=== PATIENT | female | born 1940 | race Caucasian/White ===

== ENCOUNTER 2022-10-21 17:39 | Emergency (ER) | payer MEDICARE, OTHER ==
[~2022-10-21] VITALS: Ht 172.7 cm; Wt 68.0 kg
[~2022-10-21 17:39] MED LIST: ACIDOPHILUS1 EAC3 PO; BUSP10 PO; ESCI5 PO; LOSA50 PO; MAGNESIUM MALATE PO; MELATONIN5 M1 PO; PAXLOVID 150-11 EACH PO; PRESERVISION A1 EAC2 PO; SENNA LAXATIVE8.6 MG PO; VITAMIN B122500 MC1
[2022-10-21 17:43] VITALS: BP 154/69
[2022-10-21 18:07] LABS: Source, Urine Clean Catch
[2022-10-21 18:11] LABS: Appearance, Urine Clear (Clear); Bilirubin, Urine Neg (Neg); Blood, Urine 2+ (Neg); Color, Urine Yellow (P-Yellow); Glucose Qualitative, Urine Neg (Neg); Ketones, Urine Neg (Neg); Leukocyte Esterase, Urine 2+ (Neg); Nitrite, Urine Neg (Neg); Protein, Urine Neg (Neg); Urobilinogen, Urine NORM (Normal)
[2022-10-21 18:22] LABS: Bacteria Few /hpf; Squamous Epithelial Cells Few /hpf (Few)
[2022-10-21 18:44] LABS: BASOPHILS ABSOLUTE AUTO 0.06 K/mm3 (0.00-0.23); BASOPHILS PERCENT AUTO 1 % (0-2); EOSINOPHILS ABSOLUTE AUTO 0.22 K/mm3 (0.00-0.68); EOSINOPHILS PERCENT AUTO 4 % (0-6); Hematocrit 33.4 % (33.0-51.0); Hemoglobin 10.8 g/dL (11.5-16.0); IMMATURE GRAN ABSOLUTE AUTO 0.01 K/mm3 (0.00-0.10); IMMATURE GRAN PERCENT AUTO 0 % (0-1); LYMPHOCYTES ABSOLUTE AUTO 1.26 K/mm3 (0.84-5.20); LYMPHOCYTES PERCENT AUTO 23 % (21-46); MONOCYTES ABSOLUTE AUTO 0.68 K/mm3 (0.16-1.47); MONOCYTES PERCENT AUTO 13 % (4-13); Mean Corpuscular HGB 28.1 pg (26.0-34.0); Mean Corpuscular HGB Conc 32.3 g/dL (31.5-36.5); Mean Corpuscular Volume 87 fL (80-100); Mean Platelet Volume 9.9 fL (9.1-12.4); NEUTROPHILS ABSOLUTE AUTO 3.15 K/mm3 (1.96-9.15); NEUTROPHILS PERCENT AUTO 59 % (41-73); Platelet Count 200 K/mm3 (150-400); RDW Coefficient Variation 13.4 % (11.7-14.2); RDW Standard Deviation 42.5 fL (35.1-46.3); Red Blood Cell Count 3.85 M/mm3 (3.80-5.20); White Blood Cell Count 5.38 K/mm3 (4.00-11.30)
[2022-10-21 19:02] LABS: Albumin, Blood 3.6 g/dL (3.4-5.0); Albumin/Globulin Ratio 0.9 (0.8-1.8); Bilirubin, Total 0.3 mg/dL (0.1-1.0); Bun/Creatinine Ratio 30.1 (12.0-20.0); Calcium, Blood 8.7 mg/dL (8.5-10.1); Creatinine, Blood 0.96 mg/dL (0.40-1.00); Globulin, Blood 3.9 g/dL (2.2-4.0); Potassium, Blood 4.2 mmol/L (3.5-5.5); Total Protein, Blood 7.5 g/dL (6.4-8.2)
[2022-10-21] MEDS ORDERED: CEPH500 PO (20:57)
== END 2022-10-21 21:10 | disposition home or self-care (01) ==
LOC: ER 17:39
PROVIDERS: Emergency Medicine; Student in an Organized Health Care Education/Training Program
DX: N39.0 Urinary tract infection, site not specified (principal); R45.1 Restlessness and agitation
CPT/HCPCS: 36415; 80053; 81001; 85025; 87086; 96374; 99283-25; J0696

== ENCOUNTER 2023-01-23 19:51 | Observation (INO) | payer MEDICARE, OTHER ==
[~2023-01-23] VITALS: Ht 170.2 cm; Wt 69.0 kg
[~2023-01-23 19:51] MED LIST changes: +CEPH500 PO
[2023-01-23 20:37] LABS: BASOPHILS ABSOLUTE AUTO 0.05 K/mm3 (0.00-0.23); BASOPHILS PERCENT AUTO 1 % (0-2); EOSINOPHILS ABSOLUTE AUTO 0.17 K/mm3 (0.00-0.68); EOSINOPHILS PERCENT AUTO 4 % (0-6); Hemoglobin 10.8 g/dL (11.5-16.0); IMMATURE GRAN ABSOLUTE AUTO 0.01 K/mm3 (0.00-0.10); IMMATURE GRAN PERCENT AUTO 0 % (0-1); LYMPHOCYTES ABSOLUTE AUTO 1.28 K/mm3 (0.84-5.20); LYMPHOCYTES PERCENT AUTO 27 % (21-46); MONOCYTES PERCENT AUTO 10 % (4-13); Mean Corpuscular HGB 29.1 pg (26.0-34.0); Mean Corpuscular HGB Conc 32.7 g/dL (31.5-36.5); Mean Corpuscular Volume 89 fL (80-100); Mean Platelet Volume 10.3 fL (9.1-12.4); NEUTROPHILS PERCENT AUTO 58 % (41-73); Platelet Count 178 K/mm3 (150-400); RDW Coefficient Variation 12.9 % (11.7-14.2); RDW Standard Deviation 41.8 fL (35.1-46.3); Red Blood Cell Count 3.71 M/mm3 (3.80-5.20); White Blood Cell Count 4.81 K/mm3 (4.00-11.30)
[2023-01-23 20:58] LABS: Albumin, Blood 3.4 g/dL (3.4-5.0); Albumin/Globulin Ratio 0.9 (0.8-1.8); Bilirubin, Total 0.3 mg/dL (0.1-1.0); Bun/Creatinine Ratio 28.4 (12.0-20.0); Calcium, Blood 8.8 mg/dL (8.5-10.1); Creatinine, Blood 0.84 mg/dL (0.40-1.00); Globulin, Blood 3.9 g/dL (2.2-4.0); Potassium, Blood 4.3 mmol/L (3.5-5.5); Total Protein, Blood 7.3 g/dL (6.4-8.2)
[2023-01-23] MEDS ORDERED: LOSA50 PO (21:17)
[2023-01-23] MEDS ORDERED: REMERON1510 PO (21:17)
[2023-01-23] MEDS ORDERED: MIRALAX17 GM PO (21:18)
[2023-01-23 23:47] LABS: International Normalized Ratio 0.94; Prothrombin Time Results 9.9 Sec (9.7-11.5)
[2023-01-24 04:04] VITALS: BP 166/85
[2023-01-24 05:15] LABS: Hematocrit 34.2 % (33.0-51.0); Hemoglobin 11.3 g/dL (11.5-16.0)
--- NOTE | 2023-01-24 05:24 | NUR ---
SHIFT SUMMARY. PT ARRIVED ON UNIT JUST BEFORE 0400. AOX3-4 ALTHOUGH HX OF DEMENTIA SO PT IS SOMEWHAT FORGETFUL AND IS SOMEWHAT OF A POOR HISTORIAN. EASILY REORIENTED. NO PAIN REPORTED OUTSIDE OF VERY MILD LOWER ABDOMINAL PAIN. SBA. CLEAR LIQUID DIET OF RIGHT NOW. HAS NOT USED CALL LIGHT BUT WAS EDUCATED ON ITS USE. EXCEEDINGLY PLEASANT AND COOPERATIVE WITH CARE. NO STOOL PASSED THUS FAR THIS SHIFT. BED LOCKED IN LOWEST POSITION. CALL LIGHT LEFT WITHIN REACH.
[2023-01-24 06:00] LABS: Albumin, Blood 3.4 g/dL (3.4-5.0); Albumin/Globulin Ratio 0.9 (0.8-1.8); Bilirubin, Total 0.3 mg/dL (0.1-1.0); Bun/Creatinine Ratio 22.6 (12.0-20.0); Calcium, Blood 9.1 mg/dL (8.5-10.1); Creatinine, Blood 0.8 mg/dL (0.40-1.00); Globulin, Blood 3.9 g/dL (2.2-4.0); Potassium, Blood 4.1 mmol/L (3.5-5.5); Total Protein, Blood 7.3 g/dL (6.4-8.2)
[2023-01-24 07:24] VITALS: BP 145/73
[2023-01-24 09:25] LABS: Hematocrit 33.2 % (33.0-51.0); Hemoglobin 10.8 g/dL (11.5-16.0)
[2023-01-24 15:01] VITALS: BP 132/69
--- NOTE | 2023-01-24 16:44 | NUR ---
SHIFT SUMMARY PT AOX3-4, CONFUSED AT TIMES BUT ABLE TO REORIENT. PT ANXIOUS AND WORRIED THIS SHIFT, CONFUSED TO WHY SHE IS HERE. SHE HAS A COLONOSCOPY SCHEDULED FOR TOMORROW. TWO OF HER DAUGHTERS HAVE BEEN AT THE BS. BED ALARM ON, PT CAN BE IMPULSIVE. SBA TO THE BR AT THIS TIME. FAMILY WOULD LIKE TO BE CALLED ONCE A TIME IS SET FOR THE COLONOSCOPY. FIRE PROTOCOLS AND PROCEDURES REVIEWED WITH THE PT, PT VERBALIZED UNDERSTANDING. PT IS ON RA. CALL LIGHT WITHIN REACH, BED IN THE LOWEST POSITION. WILL REPORT TO ONCOMING NURSE.
[2023-01-24 19:29] VITALS: BP 122/77
[2023-01-25] VITALS (30 sets, daily range): BP systolic 129–181; BP diastolic 68–102
--- NOTE | 2023-01-25 05:32 | NUR ---
SUMMARY- NO ACUTE EVENTS OVERNIGHT. PT AAOX1-2 THIS SHIFT ONLY ORIENTED TO SELF AT THE BEGINNING OF THE SHIFT. PT IS EASILY REDIRECTABLE. SBA TO BATHROOM. RN ENSURED FIRE SAFETY EVERY HOUR WITH ROUNDS.
--- NOTE | 2023-01-25 17:34 | NUR ---
01/25/23 1734 Theresa Orozco History, Chart, Medications and Allergies reviewed before start of procedure. 3-LEAD EKG REVIEWED WITH PHYSICIAN PRIOR TO START OF PROCEDURE. MONITOR INTACT WITH CONTINUOUS PULSE OXIMETRY, CONTINUOUS END TITAL CO2, AND INTERMITTENT BLOOD PRESSURE. O2 VIA N/C INTACT THROUGHOUT SEDATION/PROCEDURE. PATIENT DETERMINED TO BE ASA APPROPRIATE FOR PROPOFOL SEDATION PRIOR TO START OF PROCEDURE BY .
--- NOTE | 2023-01-25 18:15 | NUR ---
SHIFT SUMMARY: Pt awake and alert to self and place prior to leaving for colonoscopy. Reminded to call for ast to bathroom. Generalized weakness noted, steady gait. Pt NPO at noon. VSS, resp even nonlabored on RA. Will await report post colonoscopy. Per Dr. Herrera, plan is to repeat labs in am.
--- NOTE | 2023-01-25 19:15 | NUR ---
Received pt back from colonoscopy at 1900 awake and alert. Family at bedside. Denies pain.
[2023-01-26 01:49] VITALS: BP 149/81
[2023-01-26 05:01] LABS: BASOPHILS ABSOLUTE AUTO 0.05 K/mm3 (0.00-0.23); BASOPHILS PERCENT AUTO 1 % (0-2); EOSINOPHILS ABSOLUTE AUTO 0.15 K/mm3 (0.00-0.68); EOSINOPHILS PERCENT AUTO 3 % (0-6); Hematocrit 34.7 % (33.0-51.0); Hemoglobin 11.3 g/dL (11.5-16.0); IMMATURE GRAN ABSOLUTE AUTO 0.01 K/mm3 (0.00-0.10); IMMATURE GRAN PERCENT AUTO 0 % (0-1); LYMPHOCYTES ABSOLUTE AUTO 1.19 K/mm3 (0.84-5.20); LYMPHOCYTES PERCENT AUTO 25 % (21-46); MONOCYTES ABSOLUTE AUTO 0.42 K/mm3 (0.16-1.47); MONOCYTES PERCENT AUTO 9 % (4-13); Mean Corpuscular HGB 28.7 pg (26.0-34.0); Mean Corpuscular HGB Conc 32.6 g/dL (31.5-36.5); Mean Corpuscular Volume 88 fL (80-100); NEUTROPHILS ABSOLUTE AUTO 2.91 K/mm3 (1.96-9.15); NEUTROPHILS PERCENT AUTO 61 % (41-73); Platelet Count 164 K/mm3 (150-400); RDW Coefficient Variation 12.6 % (11.7-14.2); RDW Standard Deviation 40.7 fL (35.1-46.3); Red Blood Cell Count 3.94 M/mm3 (3.80-5.20); White Blood Cell Count 4.73 K/mm3 (4.00-11.30)
--- NOTE | 2023-01-26 05:08 | NUR ---
SUMMARY- PT AAOX1 THIS SHIFT. RN REORIENTED PT ALL THROUGHOUT THE NIGHT. PT IS PLEASANTLY CONFUSED. PT DENIED ANY PAIN THIS SHIFT. TOLERATING CARDIAC DIET WELL. NO BLOODY STOOLS THIS SHIFT. RN ENSURED FIRE SAFETY EVERY HOUR WITH ROUNDS.
[2023-01-26 08:14] VITALS: BP 149/87
--- NOTE | 2023-01-26 13:57 | NUR ---
SHIFT/DISCHARGE SUMMARY Pt remains alert to self and place, pleasantly confused. VSS. Tylenol effective for headache. Up to bathroom with SBA. Voiding without difficulty. BM this afternoon. All discharge instructions reviewed with daughter Gisele with return verbal understanding. Pt to lobby via transport chair and WARP [employer]ESSER.
== END 2023-01-26 14:03 | disposition home or self-care (01) ==
LOC: ER 19:51 → MEDS 19:52 → ENPENDDIS 01-26 11:01 → MEDS 01-26 14:03
PROVIDERS: Internal Medicine; Internal Medicine Gastroenterology; Physician Assistant; Student in an Organized Health Care Education/Training Program; ADMIT Internal Medicine
PROC: 0DBN8ZX Excision of Sigmoid Colon, Via Natural or Artificial Opening Endoscopic, Diagnostic (ICD-10-PCS; principal; 2023-01-25 15:30)
PROC: 0DBK8ZX Excision of Ascending Colon, Via Natural or Artificial Opening Endoscopic, Diagnostic (ICD-10-PCS; principal; 2023-01-25 15:30)
PROC: 0DBL8ZX Excision of Transverse Colon, Via Natural or Artificial Opening Endoscopic, Diagnostic (ICD-10-PCS; principal; 2023-01-25 15:30)
DX: K64.8 Other hemorrhoids (principal); K64.4 Residual hemorrhoidal skin tags; D12.2 Benign neoplasm of ascending colon; D12.3 Benign neoplasm of transverse colon; D12.5 Benign neoplasm of sigmoid colon; F03.A0 Unspecified dementia, mild, without behavioral disturbance, psychotic disturbance, mood disturbance, and anxiety; N17.9 Acute kidney failure, unspecified; I12.9 Hypertensive chronic kidney disease with stage 1 through stage 4 chronic kidney disease, or unspecified chronic kidney disease; N18.9 Chronic kidney disease, unspecified; D63.8 Anemia in other chronic diseases classified elsewhere; K59.09 Other constipation; K57.30 Diverticulosis of large intestine without perforation or abscess without bleeding; K63.5 Polyp of colon; K63.89 Other specified diseases of intestine; Z86.16 Personal history of COVID-19; Z85.43 Personal history of malignant neoplasm of ovary; Z79.899 Other long term (current) drug therapy
CPT/HCPCS: 36415; 74174; 80053; 85014; 85018; 85025; 85610; 86850; 86900; 86901; 88305; 93005; 93010; 99285-25; A9270; G0378; J0171; J2704; J7120; Q9967

== ENCOUNTER 2023-06-07 20:59 | Inpatient (IN) | payer MEDICARE, OTHER ==
[~2023-06-07] VITALS: Ht 170.2 cm; Wt 67.5 kg
[~2023-06-07 20:59] MED LIST changes: +MIRALAX17 GM PO; +REMERON1510 PO
[2023-06-07 21:38] LABS: BASOPHILS ABSOLUTE AUTO 0.06 K/mm3 (0.00-0.23); BASOPHILS PERCENT AUTO 1 % (0-2); EOSINOPHILS ABSOLUTE AUTO 0.12 K/mm3 (0.00-0.68); EOSINOPHILS PERCENT AUTO 2 % (0-6); Hemoglobin 11.9 g/dL (11.5-16.0); IMMATURE GRAN ABSOLUTE AUTO 0.01 K/mm3 (0.00-0.10); IMMATURE GRAN PERCENT AUTO 0 % (0-1); LYMPHOCYTES PERCENT AUTO 28 % (21-46); MONOCYTES ABSOLUTE AUTO 0.46 K/mm3 (0.16-1.47); MONOCYTES PERCENT AUTO 9 % (4-13); Mean Corpuscular HGB 29.1 pg (26.0-34.0); Mean Corpuscular HGB Conc 33.1 g/dL (31.5-36.5); Mean Corpuscular Volume 88 fL (80-100); Mean Platelet Volume 9.8 fL (9.1-12.4); NEUTROPHILS ABSOLUTE AUTO 3.28 K/mm3 (1.96-9.15); NEUTROPHILS PERCENT AUTO 60 % (41-73); Platelet Count 191 K/mm3 (150-400); RDW Coefficient Variation 12.6 % (11.7-14.2); RDW Standard Deviation 40.8 fL (35.1-46.3); Red Blood Cell Count 4.09 M/mm3 (3.80-5.20); White Blood Cell Count 5.43 K/mm3 (4.00-11.30)
[2023-06-07 21:58] LABS: Albumin, Blood 3.7 g/dL (3.4-5.0); Albumin/Globulin Ratio 0.9 (0.8-1.8); Bilirubin, Total 0.3 mg/dL (0.1-1.0); Calcium, Blood 9.3 mg/dL (8.5-10.1); Creatinine, Blood 1.05 mg/dL (0.40-1.00); Globulin, Blood 4.2 g/dL (2.2-4.0); Total Protein, Blood 7.9 g/dL (6.4-8.2)
[2023-06-07 22:00] LABS: Source, Urine Clean Catch
[2023-06-07 22:03] LABS: Bilirubin, Urine Neg (Neg); Blood, Urine 3+ (Neg); Glucose Qualitative, Urine Neg (Neg); Ketones, Urine Neg (Neg); Leukocyte Esterase, Urine 3+ (Neg); Nitrite, Urine Neg (Neg); Protein, Urine 2+ (Neg); Specific Gravity, Urine 1.015 (1.003-1.022); Urobilinogen, Urine NORM (Normal)
[2023-06-07 22:04] LABS: Appearance, Urine Hazy (Clear); Bacteria Few /hpf; Color, Urine Pale Yellow (P-Yellow); Red Blood Cells, Urine 0-2 /hpf (0-2); Squamous Epithelial Cells Not Seen /hpf (Few); Transitional Epithelial Cells Few /hpf (0-Rare); White Blood Cells, Urine 50-100 /hpf (0-5)
[2023-06-07] MEDS ORDERED: MAGNESIUM MALATE PO (22:08)
[2023-06-07] MEDS ORDERED: Preservision S1 EACH PO (22:09)
[2023-06-07] MEDS ORDERED: Acetaminophen650 M1 PO (22:09)
[2023-06-07] MEDS ORDERED: VITAMIN B125000 MC1 PO (22:09)
[2023-06-07] MEDS ORDERED: ARTIFICIAL TEAR15 M7 BOTHEYES (22:10)
[2023-06-08 00:16] LABS: Magnesium, Blood 2.3 mg/dL (1.6-2.4); Phosphorus, Blood 3.6 mg/dL (2.5-4.9); Thyroid Stimulating Hormone 4.37 uIU/mL (0.360-4.800)
[2023-06-08 03:13] VITALS: BP 188/90
[2023-06-08 03:16] VITALS: BP 163/91
--- NOTE | 2023-06-08 05:09 | NUR ---
NOC SHIFT SUMMARY: PT. ADMITTED WITH UTI. PT. A&O X2. BED ALARM IN PLACE. UP WITH ASSIST. NO C/O PAIN. VERY PLEASANT AND REDIRECTABLE. FROM [facility]. BED IN LOW POSITON. CALL LIGHT WITHIN REACH.
[2023-06-08 06:26] LABS: BASOPHILS ABSOLUTE AUTO 0.06 K/mm3 (0.00-0.23); BASOPHILS PERCENT AUTO 1 % (0-2); EOSINOPHILS ABSOLUTE AUTO 0.16 K/mm3 (0.00-0.68); EOSINOPHILS PERCENT AUTO 3 % (0-6); Hematocrit 37.8 % (33.0-51.0); Hemoglobin 12.7 g/dL (11.5-16.0); IMMATURE GRAN ABSOLUTE AUTO 0.01 K/mm3 (0.00-0.10); IMMATURE GRAN PERCENT AUTO 0 % (0-1); LYMPHOCYTES ABSOLUTE AUTO 1.36 K/mm3 (0.84-5.20); LYMPHOCYTES PERCENT AUTO 28 % (21-46); MONOCYTES ABSOLUTE AUTO 0.49 K/mm3 (0.16-1.47); MONOCYTES PERCENT AUTO 10 % (4-13); Mean Corpuscular HGB 29.9 pg (26.0-34.0); Mean Corpuscular HGB Conc 33.6 g/dL (31.5-36.5); Mean Corpuscular Volume 89 fL (80-100); Mean Platelet Volume 10.1 fL (9.1-12.4); NEUTROPHILS ABSOLUTE AUTO 2.83 K/mm3 (1.96-9.15); NEUTROPHILS PERCENT AUTO 58 % (41-73); Platelet Count 200 K/mm3 (150-400); RDW Coefficient Variation 12.8 % (11.7-14.2); RDW Standard Deviation 41.8 fL (35.1-46.3); Red Blood Cell Count 4.25 M/mm3 (3.80-5.20); White Blood Cell Count 4.91 K/mm3 (4.00-11.30)
[2023-06-08 06:47] LABS: Albumin, Blood 3.7 g/dL (3.4-5.0); Albumin/Globulin Ratio 0.8 (0.8-1.8); Bilirubin, Total 0.3 mg/dL (0.1-1.0); Bun/Creatinine Ratio 19.5 (12.0-20.0); Creatinine, Blood 0.87 mg/dL (0.40-1.00); Globulin, Blood 4.4 g/dL (2.2-4.0); Potassium, Blood 3.8 mmol/L (3.5-5.5); Total Protein, Blood 8.1 g/dL (6.4-8.2)
[2023-06-08 07:52] VITALS: BP 143/62
--- NOTE | 2023-06-08 11:22 | NUR ---
PT TRANSFERRED TO ROOM 347 @1105 VIA WHEELCHAIR D/T FALL RISK/SAFETY CONCERNS. PT ATTEMPTED OOB MULTIPLE TIMES THIS SHIFT FORGETTING WHY SHE GOT OUT OF BED. SB ASSIST NEEDED FOR TRANSFERS. BED ALARM/CHAIR ALARM ON.
[2023-06-08 16:29] VITALS: BP 148/88
--- NOTE | 2023-06-08 18:09 | NUR ---
SHIFT SUMMARY TRANSFERED ROOMS THIS SHIFT, TOLERATING CHANGE WELL. BED EXITING SEVERAL TIMES WITH NO RECOLLECTION OF NEED AT THAT TIME. CONTINENT OF BLADDER. AMBULATING WITH SBA TO 1 ASSIST. PLAN TO CONTINUE ABX AND ATTEMPT TO CLEAR COGNITION. WILL CONTINUE TO MONITOR
[2023-06-08 20:45] VITALS: BP 171/110
[2023-06-09 04:32] VITALS: BP 160/70
[2023-06-09 06:12] LABS: BASOPHILS ABSOLUTE AUTO 0.05 K/mm3 (0.00-0.23); BASOPHILS PERCENT AUTO 1 % (0-2); EOSINOPHILS PERCENT AUTO 5 % (0-6); Hemoglobin 11.1 g/dL (11.5-16.0); IMMATURE GRAN ABSOLUTE AUTO 0.01 K/mm3 (0.00-0.10); IMMATURE GRAN PERCENT AUTO 0 % (0-1); LYMPHOCYTES PERCENT AUTO 29 % (21-46); MONOCYTES ABSOLUTE AUTO 0.43 K/mm3 (0.16-1.47); MONOCYTES PERCENT AUTO 11 % (4-13); Mean Corpuscular HGB 28.8 pg (26.0-34.0); Mean Corpuscular HGB Conc 32.6 g/dL (31.5-36.5); Mean Corpuscular Volume 88 fL (80-100); Mean Platelet Volume 9.9 fL (9.1-12.4); NEUTROPHILS ABSOLUTE AUTO 2.22 K/mm3 (1.96-9.15); NEUTROPHILS PERCENT AUTO 54 % (41-73); Platelet Count 166 K/mm3 (150-400); RDW Coefficient Variation 12.7 % (11.7-14.2); RDW Standard Deviation 40.6 fL (35.1-46.3); Red Blood Cell Count 3.86 M/mm3 (3.80-5.20); White Blood Cell Count 4.11 K/mm3 (4.00-11.30)
--- NOTE | 2023-06-09 06:20 | NUR ---
SHIFT SUMMARY ASSUMED CARE, BEDSIDE REPORT DONE- ASSISTED PT TO BR- PT TOLERATED WELL, PT CONFUSED BUT DIRECTABLE- PT TOOK SCHEDULED MEDICATIONS WITHOUT PROBLEMS, PT CONFUSED AND ATTEMPTING TO GET OUT OF BED MULTIPLE TIMES, CALL TO ADELA DIAZ RE:SLEEPING AIDE- PT UP WALKING IN HALLWAY WITH SBA- GAVE RESTORIL PER DR. CHAUDHARI- PT SLEPT T/O NIGHT, PT CONFUSED, REORIENTED TO REASON FOR HER STAY, BED LOW POSITION, CALL LIGHT WITHIN REACH
[2023-06-09 06:28] LABS: Bun/Creatinine Ratio 18.4 (12.0-20.0); Calcium, Blood 8.8 mg/dL (8.5-10.1); Creatinine, Blood 0.98 mg/dL (0.40-1.00); Potassium, Blood 4.3 mmol/L (3.5-5.5)
[2023-06-09 07:16] VITALS: BP 142/91
--- NOTE | 2023-06-09 15:44 | NUR ---
SHIFT SUMMARY CONTINUES TO BED EXIT, EASILY REDIRECTABLE, NOT ALWAYS ABLE TO VERBALIZE NEED AT THE TIME. CONTINENT ALL SHIFT. VERBALIZING FEELINGS OF NOT BEING SAFE, CRYING. ABLE TO REDIRECT THIS WITH A WALK AND SNACK. CHANGED ABX, TOLERATED WELL. WILL CONTINUE TO MONITOR
[2023-06-09 16:19] VITALS: BP 154/83
[2023-06-09 19:16] VITALS: BP 145/80
[2023-06-10 05:26] VITALS: BP 151/84
[2023-06-10 06:16] LABS: BASOPHILS ABSOLUTE AUTO 0.06 K/mm3 (0.00-0.23); BASOPHILS PERCENT AUTO 2 % (0-2); EOSINOPHILS ABSOLUTE AUTO 0.16 K/mm3 (0.00-0.68); EOSINOPHILS PERCENT AUTO 4 % (0-6); Hemoglobin 11.3 g/dL (11.5-16.0); IMMATURE GRAN ABSOLUTE AUTO 0.01 K/mm3 (0.00-0.10); IMMATURE GRAN PERCENT AUTO 0 % (0-1); LYMPHOCYTES ABSOLUTE AUTO 1.26 K/mm3 (0.84-5.20); LYMPHOCYTES PERCENT AUTO 31 % (21-46); MONOCYTES ABSOLUTE AUTO 0.43 K/mm3 (0.16-1.47); MONOCYTES PERCENT AUTO 11 % (4-13); Mean Corpuscular HGB 29.1 pg (26.0-34.0); Mean Corpuscular HGB Conc 33.2 g/dL (31.5-36.5); Mean Corpuscular Volume 88 fL (80-100); NEUTROPHILS PERCENT AUTO 52 % (41-73); Platelet Count 172 K/mm3 (150-400); RDW Coefficient Variation 12.7 % (11.7-14.2); RDW Standard Deviation 40.5 fL (35.1-46.3); Red Blood Cell Count 3.88 M/mm3 (3.80-5.20); White Blood Cell Count 4.02 K/mm3 (4.00-11.30)
--- NOTE | 2023-06-10 06:29 | NUR ---
SHIFT SUMMARY PT UP TO BR DURING BEDSIDE REPORT WITH JENNI- PT CRYING AND CONFUSED OF WHERE SHE IS AT AND WHY SHE IS HERE- REORIENTED PT- REASSURED PT THAT SHE WAS SAFE- PT TOOK SCHEDULED HS MEDS WITHOUT PROBLEMS, RESTORIL GIVEN - PT SLEPT T/O NIGHT = PT SAT ALARM OFF COUPLE TIMES TO GET UP AND USE RESTROOM- BED LOW POSITION, CALL LIGHT WITHIN REACH, BED ALARM IN PLACE
[2023-06-10 06:40] LABS: Bun/Creatinine Ratio 28.3 (12.0-20.0); Creatinine, Blood 0.81 mg/dL (0.40-1.00); Potassium, Blood 4.1 mmol/L (3.5-5.5)
[2023-06-10 07:10] VITALS: BP 148/99
[2023-06-10 16:13] VITALS: BP 152/84
--- NOTE | 2023-06-10 18:25 | NUR ---
SHIFT SUMMARY: NO ACUTE EVENTS. C/O LOW BACK PAIN, LIKELY FROM BEING IN BED SO MUCH (DAUGHTER SAID PT IS UP AND AROUND ALL THE TIME), MEDICATED WITH TYLENOL AND HEATING PAD GIVEN AND GAVE SOME RELIEF. TOOK SHOWER WITH ASSISTANCE. HAS BEEN CALM AND COOPERATIVE, BUT TEAFUL AND ANXIOUS AT TIMES. DAUGHTER BRIANA VISITED FOR MOST OF THE DAY. GOOD APPETITE.
[2023-06-10 20:01] VITALS: BP 141/91
[2023-06-11 05:37] LABS: BASOPHILS ABSOLUTE AUTO 0.06 K/mm3 (0.00-0.23); BASOPHILS PERCENT AUTO 2 % (0-2); EOSINOPHILS ABSOLUTE AUTO 0.18 K/mm3 (0.00-0.68); EOSINOPHILS PERCENT AUTO 5 % (0-6); Hematocrit 34.9 % (33.0-51.0); Hemoglobin 11.6 g/dL (11.5-16.0); IMMATURE GRAN ABSOLUTE AUTO 0.01 K/mm3 (0.00-0.10); IMMATURE GRAN PERCENT AUTO 0 % (0-1); LYMPHOCYTES ABSOLUTE AUTO 1.27 K/mm3 (0.84-5.20); LYMPHOCYTES PERCENT AUTO 32 % (21-46); MONOCYTES ABSOLUTE AUTO 0.43 K/mm3 (0.16-1.47); MONOCYTES PERCENT AUTO 11 % (4-13); Mean Corpuscular HGB 29.4 pg (26.0-34.0); Mean Corpuscular HGB Conc 33.2 g/dL (31.5-36.5); Mean Corpuscular Volume 89 fL (80-100); NEUTROPHILS ABSOLUTE AUTO 2.03 K/mm3 (1.96-9.15); NEUTROPHILS PERCENT AUTO 51 % (41-73); Platelet Count 171 K/mm3 (150-400); RDW Coefficient Variation 12.4 % (11.7-14.2); Red Blood Cell Count 3.94 M/mm3 (3.80-5.20); White Blood Cell Count 3.98 K/mm3 (4.00-11.30)
--- NOTE | 2023-06-11 05:46 | NUR ---
SHIFT SUMMARY PT SITTING UP TO SIDE OF BED DURING BEDSIDE REPORT- PT INDEPENDENT IN ROOM, PT AMBULATED TO BATHROOM WITHOUT PROBLEMS, PT TOOK SCHEDULED HS MEDS- GAVE RESTORIL TO HELP SLEEP- PT UP TO BATHROOM BRUSHING TEETH- APPLIED BED ALARM D/T SLEEP AIDE- PT WOKE UP FEW TIMES AND SAT ON SIDE OF BED, ASSISTED PT TO BATHROOM, PT HARD TO DIRECT TO SIT ON TOILET- PT NOT ABLE TO WIPE SELF, PT CONFUSED AND THREW THE TOILET PAPER BEHIND HER NECK, BED LOW POSITION, BED ALARM IN PLACE
[2023-06-11 06:05] LABS: Bun/Creatinine Ratio 25.9 (12.0-20.0); Calcium, Blood 9.2 mg/dL (8.5-10.1); Creatinine, Blood 0.85 mg/dL (0.40-1.00); Potassium, Blood 4.1 mmol/L (3.5-5.5)
[2023-06-11 08:11] VITALS: BP 142/84
[2023-06-11 15:29] VITALS: BP 132/71
--- NOTE | 2023-06-11 18:40 | NUR ---
SHIFT SUMMARY: NO ACUTE EVENTS. C/O LOW BACK PAIN THIS MORNING AND SOME LOWER ABD PAIN AFTER BREAKFAST; TYLENOL HELPS WITH BACK PAIN, WALKING HELPS WITH ABD PAIN (PASSES GAS AFTER). A&O TO SELF ONLY, REPEATS QUESTIONS OFTEN. SEEMED MORE SAD AND WITHDRAWN TODAY, DID NOT REMEMBER HER DAUGHTER'S VISIT THIS MORNING. BECOMES TEARFUL WHEN BED OR CHAIR ALARM GOES OFF. APPETITE WAS POOR TODAY.
[2023-06-11 19:34] VITALS: BP 133/75
[2023-06-12 03:11] VITALS: BP 148/102
[2023-06-12 05:26] LABS: BASOPHILS ABSOLUTE AUTO 0.04 K/mm3 (0.00-0.23); BASOPHILS PERCENT AUTO 1 % (0-2); EOSINOPHILS ABSOLUTE AUTO 0.22 K/mm3 (0.00-0.68); EOSINOPHILS PERCENT AUTO 5 % (0-6); Hemoglobin 11.4 g/dL (11.5-16.0); IMMATURE GRAN PERCENT AUTO 0 % (0-1); LYMPHOCYTES ABSOLUTE AUTO 1.21 K/mm3 (0.84-5.20); LYMPHOCYTES PERCENT AUTO 29 % (21-46); MONOCYTES ABSOLUTE AUTO 0.39 K/mm3 (0.16-1.47); MONOCYTES PERCENT AUTO 9 % (4-13); Mean Corpuscular HGB 29.2 pg (26.0-34.0); Mean Corpuscular HGB Conc 33.5 g/dL (31.5-36.5); Mean Corpuscular Volume 87 fL (80-100); Mean Platelet Volume 9.8 fL (9.1-12.4); NEUTROPHILS ABSOLUTE AUTO 2.28 K/mm3 (1.96-9.15); NEUTROPHILS PERCENT AUTO 55 % (41-73); Platelet Count 164 K/mm3 (150-400); RDW Coefficient Variation 12.6 % (11.7-14.2); RDW Standard Deviation 39.8 fL (35.1-46.3); White Blood Cell Count 4.14 K/mm3 (4.00-11.30)
[2023-06-12 05:54] LABS: Bun/Creatinine Ratio 29.1 (12.0-20.0); Calcium, Blood 9.1 mg/dL (8.5-10.1); Creatinine, Blood 0.79 mg/dL (0.40-1.00); Potassium, Blood 4.3 mmol/L (3.5-5.5)
--- NOTE | 2023-06-12 06:25 | NUR ---
SHIFT SUMMARY NOC PT A/O TO SELF. PLEASANTLY CONFUSED AND COOOPERATIVE WITH CARE. PT REDIRECTS EASILY. PT HAD C/O OF CHRONIC ABD PAIN AND MEDICATED PER EMAR. PT EXPECTED TO DISCHARGE TO [facility] TODAY. PT IS CURRENTLY RESTING WITH BED ALARM ON, BED IN LOWEST POSITION, AND CALL LIGHT WITHIN REACH.
[2023-06-12 07:30] VITALS: BP 142/82
[2023-06-12 14:52] VITALS: BP 132/73
--- NOTE | 2023-06-12 17:24 | NUR ---
SIFT SUMMARY PT VERY CONFUSED AND USING NON SENSICAL SPEACH. PER PT'S DAUGHTER, PT IS MORE CONFUSED AND DISORIENTED TODAY. PT IS DIFFICULT TO REDIRECT AND HAS DIFFICULT MAKING NEEDS KNOWN. VERY PLEASANT. DAUGHTER AT BEDSIDE MOST OF DAY. CASE MANAGMENT SPOKE WITH DAUGHTER TODAY ABOUT DC PLANS FOR TOMORROW. PT VERBALIZED HEAD PAIN IN MORNING AND MEDICATED PER EMAR. PT TAKEN FOR HEAD CT TODAY. SEE IMAGAING FOR RESULTS. VSS. PT WAS ABLE TO AMBULATE UP AND DOWN FONTANEZ TWICE TODAY. BED ALARM ON. BED IN LOWEST POSITION AND CALL LIGHT IN REACH.
[2023-06-12 19:28] VITALS: BP 138/68
[2023-06-13 02:46] VITALS: BP 124/81
[2023-06-13 07:30] VITALS: BP 156/96
[2023-06-13] MEDS ORDERED: CIPR500 PO (12:25)
--- NOTE | 2023-06-13 13:12 | NUR ---
DISCHARGE NOTE PT DISCHARGED BACK TO HOME AT [facility], PICKED UP BY HER VICTORINO. TAKEN TO THE VEHICLE BY WHEELCHAIR. IV REMOVED. PERSONAL BELONGINGS RETURNED. DISCHARGE INFORMATION AND EDUCATION PROVIDED TO THE PT'S FAMILY AT THE BS. MEDICATIONS FAXED TO THE PHARMACY OF THEIR CHOICE.
== END 2023-06-13 13:12 | DRG 871 ==
LOC: ER 20:59 → MEDS 06-08 02:15
PROVIDERS: Hospitalist; Student in an Organized Health Care Education/Training Program; ADMIT Student in an Organized Health Care Education/Training Program
DX: A41.52 Sepsis due to Pseudomonas (principal); G93.41 Metabolic encephalopathy; F05 Delirium due to known physiological condition; N39.0 Urinary tract infection, site not specified; K64.9 Unspecified hemorrhoids; K57.30 Diverticulosis of large intestine without perforation or abscess without bleeding; D64.9 Anemia, unspecified; I71.43 Infrarenal abdominal aortic aneurysm, without rupture; K76.0 Fatty (change of) liver, not elsewhere classified; F03.90 Unspecified dementia, unspecified severity, without behavioral disturbance, psychotic disturbance, mood disturbance, and anxiety; Z85.43 Personal history of malignant neoplasm of ovary; Z98.890 Other specified postprocedural states; Z86.79 Personal history of other diseases of the circulatory system; Z79.899 Other long term (current) drug therapy
CPT/HCPCS: 36415; 70450; 74177; 80048; 80053; 81001; 82140; 83605; 83735; 84100; 84443; 85025; 87040; 87077; 87086; 87186; 93005; 93010; 96361; 96365-59; 96366; 99285-25; A9270; J0692; J0696; J1650; J7030; J7050; Q9967

== ENCOUNTER → 2023-07-12 | Outpatient (CLI) | payer MEDICARE, OTHER ==
[~2023-07-12] MED LIST changes: +ARTIFICIAL TEAR15 M7 BOTHEYES; +Acetaminophen650 M1 PO; +CIPR500 PO; +Preservision S1 EACH PO; +VITAMIN B125000 MC1 PO
== END ==
LOC: LAB 16:22 → LAB SHORT 16:22
DX: N39.0 Urinary tract infection, site not specified (principal)
CPT/HCPCS: 87086

== ENCOUNTER → 2023-12-31 | Outpatient (CLI) | payer MEDICARE, OTHER ==
[2023-12-31 12:57] LABS: Bacterial Vaginosis PCR Negative (NEGATIVE); Candida Group, PCR NOT DETECTED (NOT DETECT); Candida glabrata-krusei, PCR NOT DETECTED (NOT DETECT)
== END | disposition home or self-care (01) ==
LOC: LAB 10:35 → LAB SHORT 10:35
PROVIDERS: Physician Assistant
DX: R30.0 Dysuria (principal)
CPT/HCPCS: 87086; 87481; 87661; 87801